=== PATIENT | male | born 2000 | race Caucasian/White ===

== ENCOUNTER 2021-04-09 14:35 | Emergency (ER) | payer BC ==
[~2021-04-09] VITALS: Ht 175.3 cm; Wt 72.7 kg
[2021-04-09 14:36] VITALS: BP 119/63
[2021-04-09] MEDS ORDERED: LIDOCAINE W/EPINEPHRINE 1% 20ML VIAL SC ONE (16:15)
[2021-04-09] MEDS ORDERED: NEOSPORIN TOP OINT 15GM TOP ONE (16:15)
--- NOTE | 2021-04-09 18:13 | REPVR ---
PROCEDURE INFORMATION: Exam: CT Head Without Contrast Exam date and time: 04/09/2021 5:16 PM Age: 21 years old Clinical indication: Injury or trauma; Fall; Blunt trauma (contusions or hematomas); Additional info: Head injury R/O R temporoparietal FX TECHNIQUE: Imaging protocol: Computed tomography of the head without contrast. Radiation optimization: All CT scans at this facility use at least one of these dose optimization techniques: automated exposure control; mA and/or kV adjustment per patient size (includes targeted exams where dose is matched to clinical indication); or iterative reconstruction. COMPARISON: No relevant prior studies available. FINDINGS: Brain: Normal. No hemorrhage. Unremarkable white matter. No mass effect. Cerebral ventricles: No ventriculomegaly. Paranasal sinuses: Visualized sinuses are unremarkable. No fluid levels. Mastoid air cells: Visualized mastoid air cells are well aerated. Bones/joints: Unremarkable. No acute fracture. Soft tissues: Surgical ruslan in the right frontoparietal region. IMPRESSION: 1. Surgical ruslan in the right frontoparietal region. No skull fracture. 2. No acute intracranial findings. Electronically signed by: Dav Islas On 04/09/2021 18:12:54 PM
== END 2021-04-09 18:48 | disposition home or self-care (01) ==
LOC: M ED 14:35
DX: S01.01XA Laceration without foreign body of scalp, initial encounter (principal); W01.198A Fall on same level from slipping, tripping and stumbling with subsequent striking against other object, initial encounter; Y92.019 Unspecified place in single-family (private) house as the place of occurrence of the external cause; Y93.9 Activity, unspecified; Y99.9 Unspecified external cause status